=== PATIENT | male | born 1970 | race African-American/Black ===

== ENCOUNTER 2016-04-20 09:07 | Emergency (ER) | payer SELFPAY ==
[2016-04-20 10:28] LABS: BASOPHILS 0.5 % (0.0-2.0); EOSINOPHILS 1.2 % (0-7); HEMATOCRIT 36.1 % (42.0-54.0); HEMOGLOBIN 11.7 g/dL (13.5-17.5); IMMATURE GRANULOCYTES 0.6 % (0-5); LYMPHOCYTES 20.6 % (15-50); MCH 25.3 pg (26.0-34.0); MCHC 32.4 g/dL (31.0-37.0); MCV 78.1 fL (80.0-100.0); MEAN PLATELET VOLUME 10.9 fL (7.4-10.4); MONOCYTES 7.4 % (2-11); NEUTROPHILS 69.7 % (40-80); PLATELET COUNT 199 10x3/uL (130-400); RBC 4.62 10x6/uL (4.20-6.10); WBC 8.2 10x3/uL (4.8-10.8)
== END 2016-04-20 22:25 | disposition home or self-care (01) ==
LOC: D.ER 09:07
PROVIDERS: Emergency Medicine
DX: L03.313 Cellulitis of chest wall (principal); I50.9 Heart failure, unspecified; E11.9 Type 2 diabetes mellitus without complications; I10 Essential (primary) hypertension; Z95.1 Presence of aortocoronary bypass graft; F17.200 Nicotine dependence, unspecified, uncomplicated

== ENCOUNTER 2016-05-06 20:46 | Emergency (ER) | payer MEDICAID ==
[2016-05-06 23:03] LABS: BASOPHILS 0.4 % (0.0-2.0); EOSINOPHILS 0.4 % (0-7); HEMOGLOBIN 11.3 g/dL (13.5-17.5); IMMATURE GRANULOCYTES 1.7 % (0-5); LYMPHOCYTES 36.2 % (15-50); MCH 24.6 pg (26.0-34.0); MCHC 32.3 g/dL (31.0-37.0); MCV 76.1 fL (80.0-100.0); NEUTROPHILS 43.3 % (40-80); PLATELET COUNT 165 10x3/uL (130-400); RDW 16.5 % (11.5-14.5); WBC 4.7 10x3/uL (4.8-10.8)
[2016-05-06 23:15] LABS: APTT 34.7 SECONDS (22.8-39.4); INR 2.01 (0.85-1.17); PROTIME 22.8 SECONDS (11.6-15.0)
[2016-05-06 23:22] LABS: ALBUMIN 3.5 g/dL (3.4-5.0); ALKALINE PHOSPHATASE 104 U/L (46-116); ALT (SGPT) 31 U/L (10-68); BILIRUBIN - TOTAL 0.27 mg/dL (0.2-1.3); CALC OSMOLALITY 265 mosm/kg (275-300); CALCIUM 8.9 mg/dL (8.5-10.1); CARBON DIOXIDE 29.5 mmol/L (21.0-32.0); CHLORIDE - SERUM 94 mmol/L (98-107); CREATININE - SERUM 1.2 mg/dL (0.6-1.3); GLUCOSE 106 mg/dL (74-106); POTASSIUM - SERUM 3.5 mmol/L (3.5-5.1); PROTEIN - SERUM 8.5 g/dL (6.4-8.2); SODIUM 132 mmol/L (136-145); UREA NITROGEN 16 mg/dL (7-18); eGFR NON AFRICAN AMERICAN 69 mL/min (90-120)
[2016-05-06 23:34] LABS: CKMB 0.7 U/L (0.0-3.6); CREATINE KINASE 70 UL (21-232); PRO BNP 444 pg/mL (0-125); TROPONIN-I 0.052 ng/mL (0.000-0.060)
== END 2016-05-07 | disposition home or self-care (01) ==
LOC: D.ER 20:46
PROVIDERS: Emergency Medicine
DX: R07.89 Other chest pain (principal); J20.9 Acute bronchitis, unspecified; I50.9 Heart failure, unspecified; I10 Essential (primary) hypertension; E11.9 Type 2 diabetes mellitus without complications

== ENCOUNTER 2016-06-08 10:58 | Emergency (ER) | payer MEDICAID ==
[2016-06-08 12:02] LABS: BASOPHILS 0.3 % (0.0-2.0); EOSINOPHILS 0.6 % (0-7); HEMATOCRIT 40.2 % (42.0-54.0); HEMOGLOBIN 13.1 g/dL (13.5-17.5); IMMATURE GRANULOCYTES 0.7 % (0-5); LYMPHOCYTES 18.5 % (15-50); MCH 25.3 pg (26.0-34.0); MCHC 32.6 g/dL (31.0-37.0); MCV 77.6 fL (80.0-100.0); MONOCYTES 8.5 % (2-11); NEUTROPHILS 71.4 % (40-80); RBC 5.18 10x6/uL (4.20-6.10); WBC 10.8 10x3/uL (4.8-10.8)
[2016-06-08 12:15] LABS: PLATELET COUNT 216 10x3/uL (130-400)
[2016-06-08 12:19] LABS: ALBUMIN 3.8 g/dL (3.4-5.0); ANION GAP 13.2 mmol/L (8-16); BILIRUBIN - TOTAL 0.36 mg/dL (0.2-1.3); CALCIUM 9.1 mg/dL (8.5-10.1); CARBON DIOXIDE 28.2 mmol/L (21.0-32.0); CREATININE - SERUM 1.4 mg/dL (0.6-1.3); POTASSIUM - SERUM 3.4 mmol/L (3.5-5.1); PROTEIN - SERUM 8.9 g/dL (6.4-8.2)
[2016-06-08 12:55] LABS: APTT 32.9 SECONDS (22.8-39.4); INR 1.31 (0.85-1.17); PROTIME 16.2 SECONDS (11.6-15.0)
== END 2016-06-08 14:33 | disposition home or self-care (01) ==
LOC: D.ER 10:58
PROVIDERS: Emergency Medicine; Physician Assistant
DX: R42 Dizziness and giddiness (principal); R51 Headache; E11.9 Type 2 diabetes mellitus without complications; I10 Essential (primary) hypertension; Z79.01 Long term (current) use of anticoagulants; I50.9 Heart failure, unspecified; Z95.1 Presence of aortocoronary bypass graft

== ENCOUNTER 2016-07-19 09:32 | Emergency (ER) | payer MEDICAID ==
--- NOTE | ~2016-07-19 | EC ---
PATIENT:LAURA HARDIN DATE OF SERVICE: 07/19/16 SEX: M MEDICAL RECORD: [id number] DATE OF : [birth year] LOCATION:D.ER AGE OF PATIENT: 46 ADMISSION DATE: 07/19/16 REFERRING PHYSICIAN: INTERPRETING PHYSICIAN: STEPHAN GAN MD ECHOCARDIOGRAM REPORT ECHO CHARGES 4 ECHO COMPLETE CLINICAL DIAGNOSIS: CP ECHOCARDIOGRAPHIC MEASUREMENTS (adult normal given) AC root (d.<3.7cm) 3.6 LV Septum d (<1.2 cm> 1.2 Valve Excursion 2.0 LV Septum (systole) 1.8 Left Atria (s.<4.0cm> 5.5 LVPW d(<1.2cm) 1.2 RV (d.<2.3cm) 3.0 LVPW (sytole) 1.6 LV diastole(<5.6CM) 6.1 MV E-F(>70mm/sec) LV systole 4.6 LVOT Diameter 1.9 MV exc.(>10mm) Est.ejection fraction (50-75%) Pericardial Effusion N DOPPLER: LVIT A 51.0 E 200 LA RVSP 30.2 LVOT 80.0 AOP1/2T Asc. Ao 133 RVOT 73.0 RA PA 75.0 AV Gradient Peak 7.1 AV Mean 2.9 AV Area 1.7 MV Gradient Peak 14.2 MV Mean 4.0 MV Area COMMENTS: Paper Bag Making Machinist: Fab REESEOE Putty And Patch Worker:1 Dr. Gan TAPE# PACS DATE OF SERVICE: 07/19/2016 Echocardiogram FINDINGS: 1. Left ventricular chamber size is dilated. Left ventricular systolic function is ktpaoyug-ni-iuretslt reduced. Overall ejection fraction in the 30% range. 2. Left atrium is enlarged at 5.5 cm. Right atrium and right ventricle chamber sizes are as well mildly dilated. ECHOCARDIOGRAM REPORT [id number] LAURA HARDIN 3. Valvular structures: The patient underwent repair of the mitral and tricuspid valves. The valvular structures have normal structure and motion. 4. Doppler interrogation reveals mild mitral regurgitation and mild tricuspid regurgitation. No other valvular insufficiency or stenosis and pulmonary systolic pressure is normal at 30 mmHg. 5. No evidence of pericardial effusion or left ventricular thrombus. TRANSINT:[id number] Voice Confirmation ID: [id number] DOCUMENT ID: [id number] STEPHAN GAN MD CC: [id number] DICTATION DATE: 07/19/16 1254 PUMP INSTALLATION AND SERVICER: 07/19/16 1549 [facility] [address] [id number]
--- NOTE | ~2016-07-19 | CN ---
PATIENT NAME:LAURA SIMPSON MEDICAL RECORD: [id number] : 70 LOCATION:.ER ADMIT DATE: ACCOUNT: [id number] CONSULTING PHYSICIAN: STEPHAN ROSARIO MD REFERRING PHYSICIAN: YUNIEL GUY DATE OF CONSULTATION: 07/19/2016 ADMITTING DIAGNOSES: 1. Chest pain. 2. Recent cardiac surgery, valve repair, mitral. HISTORY OF PRESENT ILLNESS: Mr. Simpson had 2 episodes of sharp chest pain this morning. He does not have a history of ischemic heart disease or coronary artery disease. He is status post recent open valve repair surgery in [place]. He had a cardiac catheterization prior to that. There were no significant blockages, no bypasses were done. This pain that he experienced today was more like a musculoskeletal postoperative pain centered around the scar area. PHYSICAL EXAMINATION: GENERAL APPEARANCE: Well-nourished, well-developed, appears stated age. Level of distress, comfortable. PSYCHIATRIC: Mental status, alert, normal affect. Orientation, oriented to time, place and person. EYES: Lids and conjunctiva, noninjected. No discharge, no pallor. ENT: Lips, teeth, gums, normal dentition. Oropharynx, no cyanosis, no pallor. NECK: Carotid arteries, bilateral normal upstroke, no bruits, no thrills. JUGULAR VEINS: No jugular venous pressure or distention. CERVICAL LYMPH NODES: Nontender, nonenlarged. THYROID: Not enlarged. Nontender. No nodules. LUNGS: Respiratory effort, unlabored. CHEST: Normal curvature. No thoracic deformity. No chest wall tenderness. Percussion, resonant. Auscultation, clear. No wheezes, no rales, no rhonchi. CARDIOVASCULAR: Precordial exam, nondisplaced. No heaves or pericardial thrills. Rate and rhythm, regular. Heart sounds, normal S1, normal S2. No S3, no gallop, no rub. Systolic murmur, not heard. Diastolic murmur, not heard. EXTREMITIES: No cyanosis, no edema. Peripheral pulses, full and equal in all extremities, except as noted. No bruits appreciated. ABDOMEN: Soft, nondistended. Normal aorta. No bruit. Nontender. No masses. Liver, nontender, no hepatomegaly. Spleen, nontender, no splenomegaly. MUSCULOSKELETAL: No joint tenderness. No joint swelling. No erythema. NEUROLOGICAL: Normal gait, normal strength, normal tone. SKIN: Warm and dry. REVIEW OF SYSTEMS: The patient reports easy bruising but reports no swollen glands. The patient reports no fever, no night sweats, no significant weight gain, no significant weight loss. No significant exercise tolerance. The patient reports no dry eyes, no irritation, no vision change. Patient reports no difficulty hearing and no ear pain. Patient reports no frequent nose bleeds or nose and sinus problems. Patient reports on arm pain on exertion. No shortness of breath while lying down. No history of heart murmur. Patient reports no cough, no wheezing or coughing up blood. Patient reports no abdominal pain, no vomiting. Normal appetite. No diarrhea and not vomiting blood. No nausea and no constipation. Patient reports no incontinence. No difficulty urinating. No hematuria. No increased frequency. Patient reports no muscle aches. No weakness, no arthralgias, no back pain. No swelling of the CONSULT REPORT [id number] LASHAWNLAURA L extremities. Patient reports no abnormal mole, no jaundice, no rashes. Reports no loss of consciousness. No weakness and no numbness. No seizures, dizziness, or headaches. The patient reports no depression, no sleep disturbance, feeling safe in a relationship and no alcohol abuse. Patient reports on fatigue. Reports no runny nose or sinus pressure. No itching, no hives, and no frequent sneezing. PLAN: At this time, we will get an echocardiogram to make sure that the integrity of the valve repair is still valid. Most likely, this is postop musculoskeletal changes and no other cardiac workup or treatment would be necessary. TRANSINT:[id number] Voice Confirmation ID: [id number] DOCUMENT ID: [id number] STEPHAN ROSARIO MD CC: [id number] DICTATION DATE: 07/19/16 1147 POST PARTUM NURSE: 07/19/[address] [facility] [address] [place] [address]
[2016-07-19 10:13] LABS: BASOPHILS 0.3 % (0-2); EOSINOPHILS 1.4 % (0-7); HEMATOCRIT 40.3 % (42.0-54.0); HEMOGLOBIN 13.2 g/dL (13.5-17.5); IMMATURE GRANULOCYTES 0.3 % (0-5); LYMPHOCYTES 33.2 % (15-50); MCH 25.8 pg (26.0-34.0); MCHC 32.8 g/dL (31.0-37.0); MCV 78.9 fL (80.0-100.0); MEAN PLATELET VOLUME 10.9 fL (7.4-10.4); MONOCYTES 6.6 % (2-11); NEUTROPHILS 58.2 % (40-80); PLATELET COUNT 203 10x3/uL (130-400); RBC 5.11 10x6/uL (4.20-6.10); RDW 17.9 % (11.5-14.5); WBC 5.9 10x3/uL (4.8-10.8)
[2016-07-19 10:32] LABS: ALBUMIN 3.6 g/dL (3.4-5.0); ALKALINE PHOSPHATASE 90 U/L (46-116); ALT (SGPT) 29 U/L (10-68); CALC OSMOLALITY 274 mosm/kg (275-300); CALCIUM 8.8 mg/dL (8.5-10.1); CARBON DIOXIDE 27.2 mmol/L (21.0-32.0); CHLORIDE - SERUM 102 mmol/L (98-107); POTASSIUM - SERUM 3.7 mmol/L (3.5-5.1); PROTEIN - SERUM 8.5 g/dL (6.4-8.2); SODIUM 138 mmol/L (136-145); UREA NITROGEN 8 mg/dL (7-18); eGFR NON AFRICAN AMERICAN 85 mL/min (90-120)
[2016-07-19 10:48] LABS: GLUCOSE 111 mg/dL (74-106)
[2016-07-19 10:54] LABS: CHOL - HDL RATIO 3.8 ratio (2.3-4.9); CHOLESTEROL, TOTAL 193 mg/dL (0-200); CKMB 1.7 U/L (0.0-3.6); CREATINE KINASE 81 UL (21-232); HDL CHOLESTEROL 51 mg/dL (32-96); LDL CHOLESTEROL 129 mg/dL (0-100); LDL-HDL RATIO 2.5 ratio (1.5-3.5); TRIGLYCERIDE 66 mg/dL (30-200); TROPONIN-I 0.033 ng/mL (0.000-0.060)
== END 2016-07-19 12:55 | disposition home or self-care (01) ==
LOC: D.ER 09:32
PROVIDERS: Family Medicine
DX: R07.89 Other chest pain (principal); I50.9 Heart failure, unspecified; Z79.01 Long term (current) use of anticoagulants; E11.9 Type 2 diabetes mellitus without complications; I10 Essential (primary) hypertension; I25.810 Atherosclerosis of coronary artery bypass graft(s) without angina pectoris

== ENCOUNTER 2016-07-21 12:17 | Emergency (ER) | payer MEDICAID ==
[2016-07-21 12:57] LABS: BASOPHILS 0.6 % (0-2); EOSINOPHILS 0.7 % (0-7); HEMATOCRIT 46.4 % (42.0-54.0); HEMOGLOBIN 15.6 g/dL (13.5-17.5); IMMATURE GRANULOCYTES 0.6 % (0-5); LYMPHOCYTES 26.3 % (15-50); MCH 25.8 pg (26.0-34.0); MCHC 33.6 g/dL (31.0-37.0); MCV 76.8 fL (80.0-100.0); MONOCYTES 7.7 % (2-11); NEUTROPHILS 64.1 % (40-80); PLATELET COUNT 238 10x3/uL (130-400); RBC 6.04 10x6/uL (4.20-6.10); RDW 17.1 % (11.5-14.5); WBC 10.8 10x3/uL (4.8-10.8)
[2016-07-21 13:18] LABS: ALBUMIN 4.1 g/dL (3.4-5.0); ANION GAP 20.5 mmol/L (8-16); BILIRUBIN - TOTAL 0.43 mg/dL (0.2-1.3); CALCIUM 9.7 mg/dL (8.5-10.1); CREATININE - SERUM 2.3 mg/dL (0.6-1.3); PROTEIN - SERUM 9.9 g/dL (6.4-8.2)
[2016-07-21 13:25] LABS: POTASSIUM - SERUM 2.5 mmol/L (3.5-5.1)
[2016-07-21 13:57] LABS: DIGOXIN 0.42 ng/mL (0.90-2.00); MAGNESIUM - SERUM 1.8 mg/dL (1.8-2.4)
== END 2016-07-21 18:47 | disposition home or self-care (01) ==
LOC: D.ER 12:17
PROVIDERS: Emergency Medicine
DX: R06.00 Dyspnea, unspecified (principal); E87.6 Hypokalemia; I25.810 Atherosclerosis of coronary artery bypass graft(s) without angina pectoris; I50.9 Heart failure, unspecified; I10 Essential (primary) hypertension; E11.9 Type 2 diabetes mellitus without complications

== ENCOUNTER 2016-10-02 10:48 | Observation (INO) | payer MEDICAID ==
[~2016-10-02] VITALS: Ht 175.3 cm; Wt 111.2 kg
[2016-10-02 11:22] LABS: BASOPHILS 0.5 % (0-2); HEMATOCRIT 37.8 % (42.0-54.0); HEMOGLOBIN 12.5 g/dL (13.5-17.5); IMMATURE GRANULOCYTES 0.2 % (0-5); LYMPHOCYTES 20.9 % (15-50); MCH 25.8 pg (26.0-34.0); MCHC 33.1 g/dL (31.0-37.0); MCV 77.9 fL (80.0-100.0); MEAN PLATELET VOLUME 11.3 fL (7.4-10.4); MONOCYTES 7.4 % (2-11); RBC 4.85 10x6/uL (4.20-6.10); RDW 17.8 % (11.5-14.5); WBC 8.4 10x3/uL (4.8-10.8)
[2016-10-02 11:25] LABS: PLATELET COUNT 160 10x3/uL (130-400)
[2016-10-02 11:31] LABS: APTT 34.8 SECONDS (22.8-39.4); INR 1.31 (0.85-1.17); PROTIME 16.2 SECONDS (11.6-15.0)
[2016-10-02 11:36] LABS: ALBUMIN 3.3 g/dL (3.4-5.0); ALKALINE PHOSPHATASE 77 U/L (46-116); ALT (SGPT) 72 U/L (10-68); BILIRUBIN - TOTAL 0.78 mg/dL (0.2-1.3); CALC OSMOLALITY 279 mosm/kg (275-300); CALCIUM 8.4 mg/dL (8.5-10.1); CARBON DIOXIDE 26.1 mmol/L (21.0-32.0); CHLORIDE - SERUM 105 mmol/L (98-107); CREATININE - SERUM 0.9 mg/dL (0.6-1.3); POTASSIUM - SERUM 3.4 mmol/L (3.5-5.1); PROTEIN - SERUM 7.8 g/dL (6.4-8.2); SODIUM 141 mmol/L (136-145); UREA NITROGEN 10 mg/dL (7-18); eGFR NON AFRICAN AMERICAN > 90 mL/min (90-120)
[2016-10-02 11:37] LABS: GLUCOSE 106 mg/dL (74-106)
[2016-10-02 11:42] LABS: CREATINE KINASE 101 UL (21-232); PRO BNP 973 pg/mL (0-125)
[2016-10-02 13:22] LABS: APPEARANCE CLEAR (CLEAR); BILIRUBIN NEGATIVE (NEGATIVE); COLOR YELLOW (YELLOW); GLUCOSE NEGATIVE (NEGATIVE); KETONE NEGATIVE (NEGATIVE); LEUKOCYTE ESTERASE NEGATIVE (NEGATIVE); NITRITE NEGATIVE (NEGATIVE); PROTEIN NEGATIVE (NEGATIVE); SPECIFIC GRAVITY 1.005 (1.005-1.020); UROBILINOGEN NORMAL (NORMAL)
--- NOTE | 2016-10-02 14:19 | NUR ---
TRANSFER FROM ER BY W/C. STEVEINTED TO ROOM. CALL LIGHT IN REACH. WILL CONT. PLAN OF CARE.
[2016-10-02] MEDS ORDERED: LANOXIN125 MCG PO (15:12)
[2016-10-02] MEDS ORDERED: BUMEX2 MG PO (15:12)
[2016-10-02] MEDS ORDERED: COUMADIN5 MG PO (15:12)
[2016-10-02] MEDS ORDERED: COREG12.5 MG PO (15:13)
[2016-10-02] MEDS ORDERED: ALDACTONE25 MG PO (15:13)
[2016-10-02] MEDS ORDERED: TORSEMIDE20 MG PO (15:13)
--- NOTE | 2016-10-02 17:57 | NUR ---
WITHOUT CHANGES OR DISTRESS NNOTED AT THIS TIME. DENIES NEEDS,
--- NOTE | 2016-10-02 19:43 | NUR ---
RECEIVED REPORT, WILL ASSUME CARE OF PT, TALKING ON CELL PHONE, DENIES ANY NEEDS, BED IS LOW, SRX2, CALL LIGHT IN REACH, WILL CONTINUE PLAN OF CARE
[2016-10-02 20:59] VITALS: BP 120/78
--- NOTE | 2016-10-03 00:12 | NUR ---
ASSESSMENT COMPLETE, SEE FLOWSHEET, PT SLEEPING, BED IS LOW, SRX2, CALL LIGHT IN REACH, WILL CONTINUE PLAN OF CARE
[2016-10-03 01:20] VITALS: BP 109/71
--- NOTE | 2016-10-03 03:44 | NUR ---
RECIEVED REPORT FROM CEDRICK ARITA @ 4859, CHECKED IN ON PATIENT. SLEEPING, RR EVEN AND UNLABORED. NO S&S OF ACUTE DISTRESS NOTED. ON TELELMETRY, SHOWING SR @ 79. BED LOW AND LOCKED, CALL LIGHT IN REACH. WILL CPOC.
[2016-10-03 04:38] LABS: BASOPHILS 0.2 % (0-2); HEMATOCRIT 37.3 % (42.0-54.0); HEMOGLOBIN 12.1 g/dL (13.5-17.5); IMMATURE GRANULOCYTES 0.4 % (0-5); LYMPHOCYTES 18.5 % (15-50); MCH 25.4 pg (26.0-34.0); MCHC 32.4 g/dL (31.0-37.0); MCV 78.2 fL (80.0-100.0); MEAN PLATELET VOLUME 11.7 fL (7.4-10.4); MONOCYTES 8.1 % (2-11); NEUTROPHILS 69.8 % (40-80); PLATELET COUNT 167 10x3/uL (130-400); RBC 4.77 10x6/uL (4.20-6.10); RDW 17.9 % (11.5-14.5); WBC 9.4 10x3/uL (4.8-10.8)
[2016-10-03 04:57] LABS: INR 1.24 (0.85-1.17); PROTIME 15.5 SECONDS (11.6-15.0)
[2016-10-03 05:04] VITALS: BP 111/72
[2016-10-03 05:07] LABS: CALC OSMOLALITY 275 mosm/kg (275-300); CALCIUM 8.1 mg/dL (8.5-10.1); CARBON DIOXIDE 28.5 mmol/L (21.0-32.0); CHLORIDE - SERUM 102 mmol/L (98-107); GLUCOSE 117 mg/dL (74-106); POTASSIUM - SERUM 3.5 mmol/L (3.5-5.1); PRO BNP 861 pg/mL (0-125); SODIUM 138 mmol/L (136-145); UREA NITROGEN 10 mg/dL (7-18); eGFR NON AFRICAN AMERICAN 85 mL/min (90-120)
[2016-10-03] MEDS ORDERED: COREG12.5 MG PO (08:02)
[2016-10-03] MEDS ORDERED: K-DUR20 MEQ PO (08:02)
[2016-10-03] MEDS ORDERED: ALDACTONE25 MG PO (08:02)
[2016-10-03] MEDS ORDERED: COUMADIN5 MG PO (08:02)
[2016-10-03] MEDS ORDERED: LANOXIN125 MCG PO (08:02)
--- NOTE | 2016-10-03 08:02 | NUR ---
ASSESSMENT DONE. DENIES NEEDS.
[2016-10-03] MEDS ORDERED: TORSEMIDE20 MG PO (08:04)
[2016-10-03 08:12] VITALS: BP 110/60
--- NOTE | 2016-10-03 09:17 | NUR ---
RESTS IN BED. ROBYN NEEDS AT THIS TIME. CALL LIGHT IN REACH. WILL CONT. PLAN OF CARE.
[2016-10-03 10:48] VITALS: BP 120/82; Ht 175.3 cm; Wt 111.2 kg
--- NOTE | 2016-10-03 11:29 | NUR ---
DC GIVEN TO PT
[2016-10-03 11:47] VITALS: BP 117/76
--- NOTE | 2016-10-03 11:57 | NUR ---
DC HOME PER PERSONAL CAR
== END 2016-10-03 11:57 | disposition home or self-care (01) ==
LOC: D.ER 10:48 → OBSVTIME 13:15 → D.M2 13:15
PROVIDERS: Emergency Medicine; Nurse Practitioner Acute Care; ADMIT Family Medicine
DX: I11.0 Hypertensive heart disease with heart failure (principal); I50.23 Acute on chronic systolic (congestive) heart failure; E87.6 Hypokalemia; E11.9 Type 2 diabetes mellitus without complications

== ENCOUNTER 2016-11-13 19:23 | Emergency (ER) | payer MEDICAID ==
[2016-10-03 10:48] VITALS: BMI 36.2
[~2016-11-13 19:23] MED LIST: ALDACTONE25 MG PO; BUMEX2 MG PO; COREG12.5 MG PO; COUMADIN5 MG PO; K-DUR20 MEQ PO; LANOXIN125 MCG PO; TORSEMIDE20 MG PO
[2016-11-13 19:58] LABS: BASOPHILS 0.5 % (0-2); EOSINOPHILS 2.2 % (0-7); HEMATOCRIT 42.5 % (42.0-54.0); HEMOGLOBIN 14.3 g/dL (13.5-17.5); IMMATURE GRANULOCYTES 0.5 % (0-5); MCH 26.4 pg (26.0-34.0); MCHC 33.6 g/dL (31.0-37.0); MCV 78.6 fL (80.0-100.0); MEAN PLATELET VOLUME 11.2 fL (7.4-10.4); MONOCYTES 8.6 % (2-11); NEUTROPHILS 64.2 % (40-80); PLATELET COUNT 190 10x3/uL (130-400); RBC 5.41 10x6/uL (4.20-6.10); RDW 17.3 % (11.5-14.5); WBC 10.4 10x3/uL (4.8-10.8)
[2016-11-13 20:17] LABS: ALKALINE PHOSPHATASE 90 U/L (46-116); ALT (SGPT) 36 U/L (10-68); CALC OSMOLALITY 274 mosm/kg (275-300); CALCIUM 9.4 mg/dL (8.5-10.1); CHLORIDE - SERUM 99 mmol/L (98-107); CREATININE - SERUM 1.1 mg/dL (0.6-1.3); GLUCOSE 106 mg/dL (74-106); POTASSIUM - SERUM 3.2 mmol/L (3.5-5.1); PROTEIN - SERUM 8.9 g/dL (6.4-8.2); SODIUM 138 mmol/L (136-145); UREA NITROGEN 10 mg/dL (7-18); eGFR NON AFRICAN AMERICAN 76 mL/min (90-120)
[2016-11-13 20:24] LABS: CREATINE KINASE 104 UL (21-232); PRO BNP 872 pg/mL (0-125); TROPONIN-I 0.048 ng/mL (0.000-0.060)
== END 2016-11-13 21:39 | disposition home or self-care (01) ==
LOC: D.ER 19:23
PROVIDERS: Emergency Medicine
DX: J06.9 Acute upper respiratory infection, unspecified (principal); R05 Cough; I50.9 Heart failure, unspecified; I10 Essential (primary) hypertension; Z86.79 Personal history of other diseases of the circulatory system; E11.9 Type 2 diabetes mellitus without complications

== ENCOUNTER 2016-11-30 19:32 | Emergency (ER) | payer MEDICAID ==
[2016-10-03 10:48] VITALS: BMI 36.2
== END 2016-11-30 21:15 | disposition home or self-care (01) ==
LOC: D.ER 19:32
DX: M25.561 Pain in right knee (principal); M76.9 Unspecified enthesopathy, lower limb, excluding foot; I50.9 Heart failure, unspecified; I10 Essential (primary) hypertension; E11.9 Type 2 diabetes mellitus without complications

== ENCOUNTER 2016-12-02 19:20 | Inpatient (IN) | payer MEDICAID ==
[2016-12-02 19:53] LABS: BASOPHILS 0.3 % (0-2); EOSINOPHILS 2.1 % (0-7); HEMATOCRIT 40.4 % (42.0-54.0); HEMOGLOBIN 13.7 g/dL (13.5-17.5); IMMATURE GRANULOCYTES 0.5 % (0-5); LYMPHOCYTES 30.8 % (15-50); MCH 26.8 pg (26.0-34.0); MCHC 33.9 g/dL (31.0-37.0); MCV 78.9 fL (80.0-100.0); MEAN PLATELET VOLUME 11.7 fL (7.4-10.4); MONOCYTES 7.2 % (2-11); NEUTROPHILS 59.1 % (40-80); PLATELET COUNT 191 10x3/uL (130-400); RBC 5.12 10x6/uL (4.20-6.10); RDW 16.1 % (11.5-14.5); WBC 10.2 10x3/uL (4.8-10.8)
[2016-12-02 20:05] LABS: APTT 44.9 SECONDS (22.8-39.4); INR 1.73 (0.85-1.17); PROTIME 20.2 SECONDS (11.6-15.0)
[2016-12-02 20:06] LABS: D-DIMER-QUANTITATIVE < 0.27 ug/mLFEU (0.20-0.54)
[2016-12-02 20:23] LABS: ALBUMIN 3.3 g/dL (3.4-5.0); ALKALINE PHOSPHATASE 120 U/L (46-116); ALT (SGPT) 23 U/L (10-68); BILIRUBIN - TOTAL 0.31 mg/dL (0.2-1.3); CALCIUM 8.7 mg/dL (8.5-10.1); CARBON DIOXIDE 27.4 mmol/L (21.0-32.0); CHLORIDE - SERUM 90 mmol/L (98-107); CHOLESTEROL, TOTAL 204 mg/dL (0-200); CKMB 0.5 U/L (0.0-3.6); CREATINE KINASE 94 UL (21-232); CREATININE - SERUM 1.5 mg/dL (0.6-1.3); DIGOXIN 0.32 ng/mL (0.90-2.00); HDL CHOLESTEROL 34 mg/dL (32-96); LDL CHOLESTEROL 105 mg/dL (0-100); LDL-HDL RATIO 3.1 ratio (1.5-3.5); PROTEIN - SERUM 8.6 g/dL (6.4-8.2); SODIUM 129 mmol/L (136-145); TRIGLYCERIDE 328 mg/dL (30-200); UREA NITROGEN 14 mg/dL (7-18); eGFR NON AFRICAN AMERICAN 53 mL/min (90-120)
[2016-12-02 20:26] LABS: CALC OSMOLALITY 278 mosm/kg (275-300)
[2016-12-02 20:29] LABS: GLUCOSE 447 mg/dL (74-106)
[2016-12-02 20:30] LABS: TROPONIN-I 0.067 ng/mL (0.000-0.060)
[2016-12-03] VITALS: BP 105/86
--- NOTE | 2016-12-03 00:15 | NUR ---
ADMIT TO ROOM 2124 @ 2350 FROM ER VIA WHEELCHAIR. ALERT/ORIENTED AND CONVERSES APPROPRIATELY. TELEMETRY INITIATED, PT IS SR 77. PIV SALINE LOCKED TO LEFT WRIST. ADMISSION HISTORY AND ASSESSMENT COMPLETED. ORIENTATION TO ROOM, CALL LIGHT AND SAFETY. PLAN OF CARE REVIEWED. PT HAS NOT EATEN, PROVIDED WITH SANDWHICH TRAY AND DRINK AND THEN PATIENT WILL BE NPO UNTIL SEEN BY ENGINEERING MGR.
[2016-12-03 02:08] VITALS: BP 121/78
[2016-12-03 02:33] LABS: BASOPHILS 0.3 % (0-2); EOSINOPHILS 2.9 % (0-7); HEMATOCRIT 37.5 % (42.0-54.0); HEMOGLOBIN 12.6 g/dL (13.5-17.5); IMMATURE GRANULOCYTES 0.5 % (0-5); LYMPHOCYTES 31.5 % (15-50); MCH 26.6 pg (26.0-34.0); MCHC 33.6 g/dL (31.0-37.0); MCV 79.1 fL (80.0-100.0); MONOCYTES 7.5 % (2-11); NEUTROPHILS 57.3 % (40-80); PLATELET COUNT 169 10x3/uL (130-400); RBC 4.74 10x6/uL (4.20-6.10); RDW 16.2 % (11.5-14.5); WBC 9.8 10x3/uL (4.8-10.8)
[2016-12-03 02:39] LABS: INR 1.86 (0.85-1.17); PROTIME 21.4 SECONDS (11.6-15.0)
[2016-12-03 02:59] LABS: ALBUMIN 2.9 g/dL (3.4-5.0); ALKALINE PHOSPHATASE 100 U/L (46-116); ALT (SGPT) 19 U/L (10-68); BILIRUBIN - TOTAL 0.29 mg/dL (0.2-1.3); CALCIUM 8.4 mg/dL (8.5-10.1); CARBON DIOXIDE 31.2 mmol/L (21.0-32.0); CHLORIDE - SERUM 95 mmol/L (98-107); CKMB 0.6 U/L (0.0-3.6); CREATINE KINASE 86 UL (21-232); CREATININE - SERUM 1.4 mg/dL (0.6-1.3); POTASSIUM - SERUM 3.3 mmol/L (3.5-5.1); PROTEIN - SERUM 7.6 g/dL (6.4-8.2); SODIUM 136 mmol/L (136-145); UREA NITROGEN 17 mg/dL (7-18); eGFR NON AFRICAN AMERICAN 58 mL/min (90-120)
[2016-12-03 03:00] LABS: CALC OSMOLALITY 283 mosm/kg (275-300); GLUCOSE 285 mg/dL (74-106); TROPONIN-I 0.084 ng/mL (0.000-0.060)
[2016-12-03 03:37] VITALS: BP 105/86; BMI 36.8
[2016-12-03 04:00] VITALS: BP 104/75
--- NOTE | 2016-12-03 07:10 | NUR ---
RECEIVED REPORT. ASSUMED CARE OF PATIENT. CALL LIGHT WITHIN REACH. RESTING IN BED WITH EYES OPEN. DENIES PAIN AT THIS TIME. PATIENT IS SR ON TELEMETRY WITH OCCASIONAL PVC. NO DISTRESS.
[2016-12-03 08:00] VITALS: BP 144/86
[2016-12-03 09:17] LABS: CREATINE KINASE 95 UL (21-232); TROPONIN-I 0.056 ng/mL (0.000-0.060)
[2016-12-03 11:00] VITALS: BP 148/77
--- NOTE | 2016-12-03 11:45 | NUR ---
EKG COMPLETED AT THIS TIME. RESTING IN BED WITH EYES OPEN. CALL LIGHT WITHIN REACH. ZOSYN INFUSING ORDERED. DIET LEMON KONGIGANAK PROVIDED UPON REQUEST. NO DISTRESS.
--- NOTE | 2016-12-03 14:34 | NUR ---
FSBS 354. HIGH RESISTANCE SCALE CALLS FOR 24 UNITS TO BE ADMINISTERED. PATIENT STATES HE DOES NOT TAKE ANY INSULIN AT HOME NOR DOES HE TAKE ANY HYPERGLYCEMIC MEDICATION. 24 UNITS MAY BOTTOM PATIENT OUT. WAITING TO SPEAK WITH . HAVE VOICED CONCERNS TO ADWOA CARNES.
--- NOTE | 2016-12-03 14:40 | NUR ---
NEW ORDERS TO CHANGE SLIDING SCALE TO INTERMEDIATE.
[2016-12-03 14:51] LABS: CKMB 0.9 U/L (0.0-3.6); CREATINE KINASE 86 UL (21-232); TROPONIN-I 0.041 ng/mL (0.000-0.060)
--- NOTE | 2016-12-03 16:18 | NUR ---
KNEE ASPIRATION COMPLETED AT BEDSIDE AT THIS TIME WITH .PATIENT TOLERATED PROCEDURE WELL. DRESSING TO RIGHT LATERL KNEE CLEAN DRY AND INTACT.
--- NOTE | 2016-12-03 16:36 | NUR ---
FSBS 298. 10 UNITS HUMUIN ADMINISTERED PER SLIDING SCALE.
[2016-12-03 17:04] LABS: ERYTHROCYTE SEDIMENTATION RATE 20 mm/hr (0-15)
--- NOTE | 2016-12-03 17:52 | NUR ---
RESTING IN BED WITH EYES OPEN, CONVERSING ON CELL PHONE. NO DISTRESS. DRESSING TO RIGHT LATERAL KNEE CLEAN, DRY AND INTACT. DENIES NEEDS.
[2016-12-03 17:53] LABS: PROTEIN - BODY FLUID 3.9 G/DL
[2016-12-03 18:00] LABS: MACROPHAGES BF 3 %; MESOTHELIALS BF 39 %; NEUT - BF 56 %
--- NOTE | 2016-12-03 21:05 | NUR ---
PT RESTING IN BED. ALERT/ORIENTED. NONLABORED RESPIRATIONS ON ROOM AIR. RIGHT KNEE WITH DRESSING C/D/I. DENIES PAIN OR DISCOMFORT. SEE SHIFT ASSESSMENT. CPOC. BEDTIME MED GIVEN.
[2016-12-04] VITALS: BP 119/77
[2016-12-04 04:00] VITALS: BP 125/89
--- NOTE | 2016-12-04 04:11 | NUR ---
PT HAS RESTED WELL. NO DISTRESS. IVF/ABT INFUSING ORDERED. CPOC.
[2016-12-04 05:35] LABS: BASOPHILS 0.3 % (0-2); EOSINOPHILS 3.2 % (0-7); HEMATOCRIT 37.3 % (42.0-54.0); HEMOGLOBIN 12.7 g/dL (13.5-17.5); IMMATURE GRANULOCYTES 0.3 % (0-5); LYMPHOCYTES 25.2 % (15-50); MCH 26.7 pg (26.0-34.0); MCV 78.5 fL (80.0-100.0); MONOCYTES 7.2 % (2-11); NEUTROPHILS 63.8 % (40-80); PLATELET COUNT 159 10x3/uL (130-400); RBC 4.75 10x6/uL (4.20-6.10); RDW 16.1 % (11.5-14.5); WBC 9.1 10x3/uL (4.8-10.8)
[2016-12-04 05:47] LABS: PROTIME 17.9 SECONDS (11.6-15.0)
[2016-12-04 05:51] LABS: ERYTHROCYTE SEDIMENTATION RATE 22 mm/hr (0-15)
[2016-12-04 05:54] LABS: ALBUMIN 2.9 g/dL (3.4-5.0); ALKALINE PHOSPHATASE 84 U/L (46-116); ALT (SGPT) 21 U/L (10-68); BILIRUBIN - TOTAL 0.46 mg/dL (0.2-1.3); C-REACTIVE PROTEIN 3.7 mg/dL (0.0-0.9); CALCIUM 8.3 mg/dL (8.5-10.1); CARBON DIOXIDE 32.1 mmol/L (21.0-32.0); CHLORIDE - SERUM 96 mmol/L (98-107); CREATININE - SERUM 1.1 mg/dL (0.6-1.3); INR 1.48 (0.85-1.17); POTASSIUM - SERUM 3.4 mmol/L (3.5-5.1); PROTEIN - SERUM 7.5 g/dL (6.4-8.2); SODIUM 135 mmol/L (136-145); eGFR NON AFRICAN AMERICAN 76 mL/min (90-120)
[2016-12-04 06:18] LABS: CALC OSMOLALITY 273 mosm/kg (275-300); GLUCOSE 190 mg/dL (74-106); UREA NITROGEN 11 mg/dL (7-18)
--- NOTE | 2016-12-04 07:30 | NUR ---
RECEIVED PT IN BED AAOX4 DENIES ANY NEEDS OR DISCOMFORT AT THIS TIME
[2016-12-04 08:00] VITALS: BP 122/73
--- NOTE | 2016-12-04 11:06 | NUR ---
FSBS 230 REGULAR INSULIN 8 UNITS GIVEN SQ LT ARM
[2016-12-04 11:43] VITALS: BP 106/85
[2016-12-04] MEDS ORDERED: BACTRIM DS TABL1 TAB PO (13:11)
[2016-12-04] MEDS ORDERED: FLORAJEN3 CAPS460 MG PO (13:11)
[2016-12-04 13:55] VITALS: BMI 36.7
--- NOTE | 2016-12-04 14:12 | NUR ---
Patient Name: LAURA HARDIN Admission Status: ER Accout number: [id number] Admission Date: 12-02-2016 : 1970 Admission Diagnosis:EFFUSION, RIGHT KNEE Attending: NILA, Current LOS: 2 Anticipated DC Date: 12-04-2016 Planned Disposition: Home Primary Insurance: MEDICAID [place] Discharge Planning Comments: * Is the patient Alert and Oriented? Yes 0 * How many steps to enter\exit or inside your home? 9 0 * PCP INTERNET MARKETING STRATEGIST [facility] 0 * Pharmacy [facility] 0 * Preadmission Environment Home Alone 0 * ADLs Independent 0 * Equipment None 0 * Other Equipment NO MEDICAL EQUIPMENT PROVIDER PREFERENCE 0 * List name and contact numbers for known caregivers / representatives who currently or will assist patient after discharge: SUZANNE HARDIN, SISTER, 0 * Community resources currently utilized None 0 * Please name any agencies selected above. NONE 0 * Additional services required to return to the preadmission environment? No 0 * Can the patient safely return to the preadmission environment? Yes 0 * Has this patient been hospitalized within the prior 30 days at any hospital? No 0 CM MET WITH PT IN ROOM TO DISCUSS DISCHARGE PLANNING AND NEEDS. PT REPORTS LIVING AT HOME INDEPENDENTLY AND ALONE. PT HAS NO MEDICAL EQUIPMENT AND NO OUTSIDE SERVICES ASSISTING IN THE HOME. CM DISCUSSED AVAILABILITY OF HOME HEALTH, REHAB SERVICES AND MEDICAL EQUIPMENT. PT DENIES DISCHARGE NEEDS, REPORTS HIS SISTER WILL PICK HER UP FOR DISCHARGE HOME TODAY. PT ASKED HOW TO ACCESS MEDICAID TRANSPORTATION SERVICES, CM PROVIDED THE PHONE NUMBER, , ADVISED PT THAT HE WOULD NEED TO CALL WITH HIS MEDICAID NUMBER FOR PHONE ASSESSMENT AND CERTIFICATION FOR TRANSPORTATION SERVICES. IF ELIGIBLE, PT WILL NEED TO CALL 48 HOURS IN ADVANCE FOR MEDICAL APPOINTMENT TRANSPORTATION. PT DENIES FURTHER DISCHARGE NEEDS. Lease Purchase Truck Driver: Saul Aguilar
--- NOTE | 2016-12-04 17:00 | NUR ---
REVIEWED DISCHARGE INSTRUCTIONS WITH PT STATES UNDERSTANDING COPY GIVEN DCD SALINE LOCK TO LFA WITH IV CATHETER INTACT SITE FREE OF REDNESS OR EDEMA PT DISCHARGED HOME LEFT UNIT VIA W/C IN STABLE CONDITION WITH ALL PERSONAL BELONGINGS
--- NOTE | 2016-12-05 07:04 | OP ---
PATIENT NAME: LAURA SIMPSON MEDICAL RECORD: [id number] :70 LOCATION:[facility]att Manav.2124 ADMISSION DATE:12/02/16 SURGEON: SORAIDA HUSAIN DO DATE OF OPERATION: 12/03/2016 PROCEDURE PERFORMED: Right knee joint aspiration. INDICATIONS: Mr. Simpson is a 46-year-old male who has had right knee swelling for 3 days. He said that the pain has gotten better; however, the knee is still quite swollen and tender and he had elevated C-reactive protein. I was asked to see him in consult on the floor. He does have a history of gout, however. DESCRIPTION OF PROCEDURE: Mr. Simpson was in the supine position in his bed. The right knee was marked after he was consented for right knee aspiration and the superior lateral portal was marked. The site was then prepped with Betadine and ethyl chloride spray was used to anesthetize the area. Once this was done, an 18-gauge needle was entered into the knee joint and suprapatellar pouch from the superior and lateral portal and aspiration commenced consisting of a synovial fluid, dena in color, did not appear to be purulent whatsoever and he tolerated this well, 30 mL of the fluid was aspirated off of his knee and then the needle was withdrawn. A 2 x 2 with a Tegaderm was then placed over the site. The patient tolerated this well, was neurovascularly intact after the procedure. The fluid was sent to the lab for analysis, crystals, Gram stain cultures, glucose and cell count. That is a plan as documented. TRANSINT:[id number] Voice Confirmation ID: [id number] DOCUMENT ID: [id number] SORAIDA HUSAIN DO at 0704 CC: [id number] DICTATION DATE: 12/03/16 1621 SENIOR SOURCING MANAGER: 12/03/162003 DIS IN 12/04/16 [facility] [address] [place] [address]
--- NOTE | 2016-12-14 12:47 | EC ---
PATIENT:LAURA HARDIN DATE OF SERVICE: 12/02/16 SEX: M MEDICAL RECORD: [id number] DATE OF : 70 LOCATION:D. D.212 AGE OF PATIENT: 46 ADMISSION DATE: 12/02/16 REFERRING PHYSICIAN: INTERPRETING PHYSICIAN: LAMAR RODRIGUEZ MD ECHOCARDIOGRAM REPORT ECHO CHARGES 4 ECHO COMPLETE CLINICAL DIAGNOSIS: HX OF MITRAL VALVE REPAIR AND HTN ECHOCARDIOGRAPHIC MEASUREMENTS (adult normal given) AC root (d.<3.7cm) 3.6 cm LV Septum d (<1.2 cm> 1.3 cm Valve Excursion 1.8 cm LV Septum (systole) 1.5 cm Left Atria (s.<4.0cm> 5.2 cm LVPW d(<1.2cm) 1.6 cm RV (d.<2.3cm) 5.1 cm LVPW (sytole) 1.7 cm LV diastole(<5.6CM) 5.8 cm MV E-F(>70mm/sec) cm LV systole 4.0 cm LVOT Diameter 1.9 cm MV exc.(>10mm) 1.3 cm Est.ejection fraction (50-75%) % Pericardial Effusion N DOPPLER: LVIT cm/sec A 125 cm/sec E 202 cm/sec LA 119 cm/sec RVSP mmHg LVOT 145 cm/sec AOP1/2T m/s Asc. Ao 86 cm/sec RVOT cm/sec RA 94 cm/sec PA cm/sec AV Gradient Peak 8.38 mmHg AV Mean 4.69 mmHg AV Area 2.1 cm MV Gradient Peak 16.61mmHg MV Mean 5.10 mmHg MV Area cm COMMENTS: Boy'S Adviser: 2 MERE BANEGAS Financial Management: 4 Dr. Rodriguez TAPE# PACS DATE OF SERVICE: 12/03/2016 Transthoracic Echocardiogram FINDINGS: 1. The structure of the heart was difficult to visualize. The patient has a history of valvular repairs. The left ventricular wall motion is complex and appears to be mildly reduced, ejection fraction of 40% to 45%. 2. The mitral valve is thickened throughout its course and the behavior of the anterior mitral valve leaflet and the posterior mitral valve leaflet are ECHOCARDIOGRAM REPORT [id number] LAURA HARDIN unusual, which may be he has undergone some type of mitral valve replacement or repair, but is not easily visualized. There is aliasing velocity across the mitral valve. There is increasing peak velocities across the mitral valve, which would suggest mitral stenosis and although the patient is reportedly in atrial fibrillation, we do have an A wave characteristic. The pressure halftime across the mitral valve was not demonstrated on this study. 3. The aortic valve appears to be structurally normal without any evidence of significant regurgitation or stenosis. 4. The tricuspid valve was not visualized on this study. There is no recorded significant interrogation of the tricuspid valve. CONCLUSION: The patient has had some type of mitral valve repair that makes difficult to have an accurate assessment. There is also complex wall motion along the left ventricle. There is some hint of inferior posterior hypokinesis, although that may be asynchronous and wall motion. If clinically indicated, further evaluation may be helpful. TRANSINT:[id number] Voice Confirmation ID: [id number] DOCUMENT ID: [id number] 12/12/2016 Edited to correct date of service, dm. LAMAR RODRIGUEZ MD at 1247 CC: [id number] DICTATION DATE: 12/04/16 0724 DIRECTOR OF CASINO MARKETING: 12/04/16 1107 DIS IN 12/04/16 [id number] [place] [address]
--- NOTE | 2016-12-25 15:54 | DS ---
PATIENT:LAURA HARDIN :[birth year] MEDICAL RECORD: [id number] DISCHARGE SUMMARY ADMISSION DATE: 12/02/16 DISCHARGE DATE: 12/04/16 ADMIT DATE: 12/02/2016 DISCHARGE DATE: 12/04/2016 DIAGNOSES: 1. Mbhpy-um-dyeupqq systolic heart failure. 2. Atrial flutter. 3. History of mitral valve repair. 4. Diabetes mellitus. 5. Hypokalemia. 6. Acute kidney injury. 7. Effusion of the right knee. CONSULTS: 1. Raghu Juarez MD 2. Vin Cavazos DO, for knee effusion. IMAGES OR STUDIES: Right knee joint aspirated. HOSPITAL COURSE: The full H&P is listed elsewhere in the chart for this 46-year-old male patient who presented with some atypical chest pain, lower extremity edema, and shortness of breath. He was found to have some xhbei-kc-cyfbcum systolic failure. He underwent appropriate diuresis for which he did respond too well. His troponin was slightly bumped, but this was due to ventricular stress. A cardiology was consulted, but no cardiovascular intervention was indicated during this hospitalization other than gentle diuresis. He had a component of prerenal azotemia due to his excess volume that did improve with diuresis. He underwent ortho consult for a knee effusion for which he underwent a knee aspirate by Dr. Cavazos. His clinical condition improved. He was converted from IV diuretics to oral and was thought to be stable to follow up with [facility] in the outpatient setting. See med rec. TRANSINT:[id number] Voice Confirmation ID: [id number] DOCUMENT ID: [id number] Dictated By: SIMEON REED I have interviewed/examined the above patient and agree with these documented findings. UGO RUGGIERO MD at 1110 at 1553 CC: [id number] DICTATION DATE: 12/20/16 1555 AS400 CONSULTANT: 12/21/16 0546 DIS IN 12/04/16 [facility] [address] [place] [address]
== END 2016-12-04 17:00 | disposition home or self-care (01) | DRG 564 ==
LOC: D.ER 19:20 → D.M2 23:09
PROVIDERS: Family Medicine; Orthopaedic Surgery; ADMIT Family Medicine
PROC: 0S9C3ZZ Drainage of Right Knee Joint, Percutaneous Approach (ICD-10-PCS; principal; 2016-12-03)
DX: M25.461 Effusion, right knee (principal); I50.23 Acute on chronic systolic (congestive) heart failure; N17.9 Acute kidney failure, unspecified; I48.92 Unspecified atrial flutter; E11.9 Type 2 diabetes mellitus without complications; E87.6 Hypokalemia; I11.0 Hypertensive heart disease with heart failure

== ENCOUNTER 2016-12-16 13:24 | Inpatient (IN) | payer MEDICAID ==
[~2016-12-16 13:24] MED LIST changes: +BACTRIM DS TABL1 TAB PO; +FLORAJEN3 CAPS460 MG PO
[2016-12-16 13:57] LABS: BASOPHILS 0.9 % (0-2); EOSINOPHILS 2.6 % (0-7); HEMATOCRIT 39.2 % (42.0-54.0); HEMOGLOBIN 13.2 g/dL (13.5-17.5); IMMATURE GRANULOCYTES 0.4 % (0-5); LYMPHOCYTES 31.1 % (15-50); MCH 27.1 pg (26.0-34.0); MCHC 33.7 g/dL (31.0-37.0); MCV 80.5 fL (80.0-100.0); MEAN PLATELET VOLUME 12.2 fL (7.4-10.4); MONOCYTES 6.2 % (2-11); NEUTROPHILS 58.8 % (40-80); RBC 4.87 10x6/uL (4.20-6.10); RDW 15.3 % (11.5-14.5)
[2016-12-16 13:58] LABS: PLATELET COUNT 200 10x3/uL (130-400)
[2016-12-16 14:19] LABS: ALBUMIN 3.6 g/dL (3.4-5.0); ANION GAP 14.9 mmol/L (8-16); BILIRUBIN - TOTAL 0.46 mg/dL (0.2-1.3); CALCIUM 9.2 mg/dL (8.5-10.1); CARBON DIOXIDE 26.4 mmol/L (21.0-32.0); CREATININE - SERUM 1.6 mg/dL (0.6-1.3); MAGNESIUM - SERUM 2.1 mg/dL (1.8-2.4); POTASSIUM - SERUM 4.3 mmol/L (3.5-5.1); PROTEIN - SERUM 8.7 g/dL (6.4-8.2); TROPONIN-I 0.027 ng/mL (0.000-0.060)
[2016-12-16 14:28] LABS: INR 0.98 (0.85-1.17); PROTIME 12.8 SECONDS (11.6-15.0)
[2016-12-16 18:02] LABS: APPEARANCE CLEAR (CLEAR); BILIRUBIN NEGATIVE (NEGATIVE); COLOR STRAW (YELLOW); GLUCOSE 1000 mg/dL (NEGATIVE); KETONE NEGATIVE (NEGATIVE); NITRITE NEGATIVE (NEGATIVE); PROTEIN NEGATIVE (NEGATIVE); UROBILINOGEN NORMAL (NORMAL)
[2016-12-16 18:09] LABS: UDS - AMPHET NEGATIVE QUAL (NEGATIVE); UDS - BARB NEGATIVE QUAL (NEGATIVE); UDS - BENZO NEGATIVE QUAL (NEGATIVE); UDS - COCAINE NEGATIVE QUAL (NEGATIVE); UDS - OPIATE NEGATIVE QUAL (NEGATIVE); UDS - PCP NEGATIVE QUAL (NEGATIVE); UDS - THC POSITIVE QUAL (NEGATIVE)
--- NOTE | 2016-12-16 19:55 | NUR ---
SPOKE WITH AMANDA IN E.R. RECIEVED REPORT.
[2016-12-16 20:00] VITALS: BP 123/72
--- NOTE | 2016-12-16 20:27 | NUR ---
BS 361, COVERED PER S/S.
--- NOTE | 2016-12-16 23:58 | NUR ---
IN BED RESTING, RESPERTONS EVEN, WILL CONT TO MONITOR.
[2016-12-17] VITALS: BP 123/81
--- NOTE | 2016-12-17 01:28 | NUR ---
RESTING WITH EYES CLOSED, RESPERATIONS EVEN, NO S/S DISTRESS NOTED.
[2016-12-17 04:00] VITALS: BP 99/74
--- NOTE | 2016-12-17 04:31 | NUR ---
COMPANY PILOT AT BED SIDE TO OBTAIN VITAL SIGNS.
[2016-12-17 08:00] VITALS: BP 100/64
--- NOTE | 2016-12-17 10:46 | NUR ---
TELEMETRY FLUTTER HR 110. SNOW REMOVING SUPERVISOR AT BS. WILL CONT. PLAN OF CARE.
--- NOTE | 2016-12-17 15:57 | NUR ---
TELEMETR HR 79.
[2016-12-17 16:00] VITALS: BP 115/70
[2016-12-17 20:00] VITALS: BP 115/62
[2016-12-18] VITALS (7 sets, daily range): BP systolic 104–122; BP diastolic 48–73; BMI 36.7
[2016-12-18 05:32] LABS: BASOPHILS 0.6 % (0-2); EOSINOPHILS 3.7 % (0-7); HEMATOCRIT 37.9 % (42.0-54.0); HEMOGLOBIN 12.7 g/dL (13.5-17.5); IMMATURE GRANULOCYTES 0.5 % (0-5); INR 0.98 (0.85-1.17); LYMPHOCYTES 26.4 % (15-50); MCHC 33.5 g/dL (31.0-37.0); MCV 80.6 fL (80.0-100.0); MEAN PLATELET VOLUME 12.5 fL (7.4-10.4); NEUTROPHILS 63.8 % (40-80); PLATELET COUNT 187 10x3/uL (130-400); PROTIME 12.8 SECONDS (11.6-15.0); RDW 15.7 % (11.5-14.5); WBC 9.4 10x3/uL (4.8-10.8)
[2016-12-18 05:39] LABS: CALC OSMOLALITY 276 mosm/kg (275-300); CALCIUM 8.4 mg/dL (8.5-10.1); CARBON DIOXIDE 27.8 mmol/L (21.0-32.0); CHLORIDE - SERUM 100 mmol/L (98-107); CREATININE - SERUM 1.1 mg/dL (0.6-1.3); GLUCOSE 206 mg/dL (74-106); POTASSIUM - SERUM 3.5 mmol/L (3.5-5.1); SODIUM 136 mmol/L (136-145); UREA NITROGEN 9 mg/dL (7-18); eGFR NON AFRICAN AMERICAN 76 mL/min (90-120)
--- NOTE | 2016-12-18 10:27 | NUR ---
SLEEPING AT PRESENT. MONITOR SHOWS NSR@ 67. WILL CONTINUE TO MONITOR.
[2016-12-18 17:01] LABS: HEMOGLOBIN A1C 10.4 % (4.8-6.0)
--- NOTE | 2016-12-18 20:00 | NUR ---
PT RESTING IN BED. ALERT/ORIENTED. VOICING NO NEEDS. SEE SHIFT ASSESSMENT AND CPOC.
--- NOTE | 2016-12-18 23:45 | NUR ---
HS MEDS GIVEN. LANTUS AND SLIDING SCALE ADMINISTERED. PT REQUESTING SNACK. SNACK PROVIDED.
--- NOTE | 2016-12-19 00:15 | NUR ---
PT DOES NOT WANT IV BUMEX DURING THE NIGHT. WILL RESET TIMES FOR 0500 AND 1700.
[2016-12-19 04:32] VITALS: BP 114/68
[2016-12-19 05:09] LABS: BASOPHILS 0.5 % (0-2); EOSINOPHILS 3.8 % (0-7); HEMATOCRIT 36.4 % (42.0-54.0); IMMATURE GRANULOCYTES 0.5 % (0-5); LYMPHOCYTES 30.9 % (15-50); MCH 26.7 pg (26.0-34.0); MCV 81.1 fL (80.0-100.0); MEAN PLATELET VOLUME 12.6 fL (7.4-10.4); NEUTROPHILS 54.3 % (40-80); PLATELET COUNT 182 10x3/uL (130-400); RBC 4.49 10x6/uL (4.20-6.10); RDW 15.9 % (11.5-14.5); WBC 7.6 10x3/uL (4.8-10.8)
[2016-12-19 05:22] LABS: CALC OSMOLALITY 274 mosm/kg (275-300); CALCIUM 8.5 mg/dL (8.5-10.1); CARBON DIOXIDE 27.8 mmol/L (21.0-32.0); CHLORIDE - SERUM 100 mmol/L (98-107); CREATININE - SERUM 1.1 mg/dL (0.6-1.3); GLUCOSE 160 mg/dL (74-106); POTASSIUM - SERUM 3.3 mmol/L (3.5-5.1); SODIUM 137 mmol/L (136-145); UREA NITROGEN 8 mg/dL (7-18); eGFR NON AFRICAN AMERICAN 76 mL/min (90-120)
[2016-12-19 05:25] LABS: INR 1.03 (0.85-1.17); PROTIME 13.3 SECONDS (11.6-15.0)
[2016-12-19 08:06] VITALS: BP 101/61
--- NOTE | 2016-12-19 08:48 | NUR ---
ASSESSMENT COMPLETED. TELEMERTY SHOWS SR AT 70. IV TO THE RIGHT WRIST WITH NS AT 30. DENIES ANY NEEDS. SR UP WITH CALL LIGHT IN REACH WILL MONITOR
--- NOTE | 2016-12-19 12:11 | NUR ---
Nutrition Consult: Consult received for DM edu. Pt reported that he has had DM "for years." He stated that he does like sweet tea and does eat dessert often. Pt stated that he eats a large amount of vegetables and not really many CHO (except dessert). Discussed CHO containing foods and portion sizes. Encouraged pt to eat 3 meals and 3 snacks/day - all including CHO. Cautioned pt from eating dessert everyday; portion control with this discussed as well. Pt understood info presented. Pt encouraged to contact RD with any questions/concerns. Thank you for the consult. RD following.
[2016-12-19 12:17] VITALS: BP 114/80
--- NOTE | 2016-12-19 13:37 | NUR ---
LYING QUIETLY. NO NEEDS VOICED. SR UP WITH CALL LIGHT IN REACH.
[2016-12-19] MEDS ORDERED: LANTUS SOL100 UNIT/1 SC (13:54)
[2016-12-19] MEDS ORDERED: BETAPACE 80 MG80 MG PO (13:59)
--- NOTE | 2016-12-19 16:07 | NUR ---
Patient Name: LAURA HARDIN Admission Status: ER Accout number: [id number] Admission Date: 12-17-2016 : 1970 Admission Diagnosis: Attending: LUCERO EVANS Current LOS: 2 Anticipated DC Date: 12-19-2016 Planned Disposition: Home Primary Insurance: MEDICAID [place] Discharge Planning Comments: * Is the patient Alert and Oriented? Yes 0 * How many steps to enter\exit or inside your home? 9 0 * PCP [facility] 0 * Pharmacy [facility] 0 * Preadmission Environment Home Alone 0 * ADLs Independent 0 * Equipment None 0 * Other Equipment NO MEDICAL EQUIPMENT PROVIDER PREFERNECE 0 * List name and contact numbers for known caregivers / representatives who currently or will assist patient after discharge: SUZANNE HARDIN, SISTER, 0 * Community resources currently utilized None 0 * Please name any agencies selected above. NONE 0 * Additional services required to return to the preadmission environment? No 0 * Can the patient safely return to the preadmission environment? Yes 0 * Has this patient been hospitalized within the prior 30 days at any hospital? Yes 0 CM MET WITH PT IN ROOM TO DISCUSS DISCHARGE PLANNING AND NEEDS. PT REPORTS LIVING AT HOME INDEPENDENTLY AND ALONE. PT HAS NO MEDICAL EQUIPMENT AND NO OUTSIDE SERVICES ASSISTING IN THE HOME. CM DISCUSSED AVAILABILITY OF HOME HEALTH, REHAB SERVICES AND MEDICAL EQUIPMENT. PT DENIES DISCHARGE NEEDS, REPORTS HIS BROTHER WILL PICK HIM UP FOR DISCHARGE HOME. GRAINING PRESS OPERATOR NURSE NOTIFIED. Inspector Handbag Frames: Saul Aguilar
--- NOTE | 2016-12-19 16:15 | NUR ---
PT DISCHAGED. IV DCD WITH TIP INTACT. INSTRUCTIONS GIVEN. TO PRIVATE CAR PER WHEEL CHAIR
--- NOTE | 2016-12-29 16:56 | CN ---
PATIENT NAME:LAURA SIMPSON MEDICAL RECORD: [id number] : 70 LOCATION:[facility] D.2114 ADMIT DATE: 12/17/16 ACCOUNT: [id number] CONSULTING PHYSICIAN: STEPHAN ROSARIO MD REFERRING PHYSICIAN: LUCERO DOE MD DATE OF CONSULTATION: 12/17/2016 DIAGNOSES: 1. Shortness of breath. 2. Dyspnea on exertion. 3. Mitral regurgitation. 4. Status post mitral valve repair in [place]. 5. Pulmonary edema, congestive heart failure. 6. Cardiomyopathy, chronic systolic dysfunction. 7. Atrial fibrillation, chronic. 8. Tachycardia. HISTORY OF PRESENT ILLNESS: Mr. Simpson presents with shortness of breath, dyspnea on exertion, no real chest pain, he is found to have pulmonary edema and he is also found to have atrial fibrillation with rapid ventricular response. Questionable compliance with his medications, he admits to being out of them for at least 1 or 2 days prior to admission. He is on digoxin and carvedilol last admission, on his meds he was still tachycardic with the atrial fibrillation. The atrial fibrillation is chronic at this time, his left atrium is grossly enlarged. He is status post mitral valve repair in [place]. The atrial fibrillation has been chronic since then. Prior to the valve repair, he had cardiac catheterization revealing no significant blockages. Last echocardiogram here was an ejection fraction in the 40% range. PHYSICAL EXAMINATION: GENERAL APPEARANCE: Well-nourished, well-developed, appears stated age. Level of distress, comfortable. PSYCHIATRIC: Mental status, alert, normal affect. Orientation, oriented to time, place and person. EYES: Lids and conjunctiva, noninjected. No discharge, no pallor. ENT: Lips, teeth, gums, normal dentition. Oropharynx, no cyanosis, no pallor. NECK: Carotid arteries, bilateral normal upstroke, no bruits, no thrills. JUGULAR VEINS: No jugular venous pressure or distention. CERVICAL LYMPH NODES: Nontender, nonenlarged. THYROID: Not enlarged. Nontender. No nodules. LUNGS: Respiratory effort, unlabored. CHEST: Normal curvature. No thoracic deformity. No chest wall tenderness. Percussion, resonant. Auscultation, clear. No wheezes, no rales, no rhonchi. CARDIOVASCULAR: Irregular irregular with atrial fibrillation and rapid ventricular response. EXTREMITIES: No cyanosis, no edema. Peripheral pulses, full and equal in all extremities, except as noted. No bruits appreciated. ABDOMEN: Soft, nondistended. Normal aorta. No bruit. Nontender. No masses. Liver, nontender, no hepatomegaly. Spleen, nontender, no splenomegaly. MUSCULOSKELETAL: No joint tenderness. No joint swelling. No erythema. NEUROLOGICAL: Normal gait, normal strength, normal tone. SKIN: Warm and dry. OVERALL IMPRESSION: Shortness of breath, dyspnea on exertion. I think this is not only from the cardiomyopathy, but the atrial fibrillation with rapid CONSULT REPORT [id number] LAURA SIMPSON response. He is on carvedilol and digoxin, still having rapid ventricular response even when he received those medications here in the hospital on his last hospitalization. We will add sotalol 80 mg b.i.d. to his medical regimen for improved rate control, give him IV Bumex at this time for diuresis. His congestive heart failure and pulmonary edema should clear rapidly, especially with rate control and IV Bumex. TRANSINT:[id number] Voice Confirmation ID: [id number] DOCUMENT ID: [id number] STEPHAN ROSARIO MD at 1656 CC: [id number] DICTATION DATE: 12/17/16 1233 LINOLEUM TILE FLOOR LAYER: 12/17/16 1701 DIS IN 12/19/16 [id number] [place] [address]
--- NOTE | 2016-12-29 16:56 | EC ---
PATIENT:LAURA HARDIN DATE OF SERVICE: 12/17/16 SEX: M MEDICAL RECORD: [id number] DATE OF : 70 LOCATION:D. D.211 AGE OF PATIENT: 46 ADMISSION DATE: 12/17/16 REFERRING PHYSICIAN: INTERPRETING PHYSICIAN: STEPHAN GAN MD ECHOCARDIOGRAM REPORT ECHO CHARGES 4 ECHO COMPLETE CLINICAL DIAGNOSIS: CHF HX OF MITRAL /TRICUSPID VALVE REPAIR/HTN ECHOCARDIOGRAPHIC MEASUREMENTS (adult normal given) AC root (d.<3.7cm) 3.6 cm LV Septum d (<1.2 cm> 1.4 cm Valve Excursion 2.0 cm LV Septum (systole) 1.5 cm Left Atria (s.<4.0cm> 4.6 cm LVPW d(<1.2cm) 1.2 cm RV (d.<2.3cm) 3.6 cm LVPW (sytole) 1.4 cm LV diastole(<5.6CM) 6.5 cm MV E-F(>70mm/sec) cm LV systole 5.2 cm LVOT Diameter 1.8 cm MV exc.(>10mm) 1.5 cm Est.ejection fraction (50-75%) % Pericardial Effusion N DOPPLER: LVIT cm/sec A 20.0 cm/sec E 198 cm/sec LA cm/sec RVSP 41 mmHg LVOT 121 cm/sec AOP1/2T m/s Asc. Ao 139 cm/sec RVOT 89 cm/sec RA cm/sec PA 96 cm/sec AV Gradient Peak 7.70 mmHg AV Mean 3.76 mmHg AV Area 2.5 cm MV Gradient Peak 26.65mmHg MV Mean 9.35 mmHg MV Area cm COMMENTS: [facility] Hospitalist: Bruce BANEGAS Hospital Nurse: 1 Dr. Gan TAPE# PACS DATE OF SERVICE: 12/17/2016 Echocardiogram FINDINGS: 1. Left ventricular chamber size is mildly dilated. Left ventricular systolic function is moderately reduced, overall ejection fraction 30% to 35%. 2. The left atrium is moderately enlarged at 4.6 cm. Right atrium and right ventricular chamber sizes are as well ygrf-ro-lduobxouvy dilated. 3. Valvular structures have normal structure and motion. ECHOCARDIOGRAM REPORT [id number] LAURA HARDIN 4. Doppler interrogation reveals ghuz-[id number]-xcnbcbwy mitral regurgitation, [id number] tricuspid regurgitation, no other valvular insufficiency or stenosis. Pulmonary systolic pressure is mildly elevated, estimated at 41 mmHg. 5. No evidence of pericardial effusion or left ventricular thrombus. TRANSINT:[id number] Voice Confirmation ID: [id number] DOCUMENT ID: [id number] 12/25/2016 Edited to correct date of service, dmm. STEPHAN GAN MD at 1656 CC: [id number] DICTATION DATE: 12/18/16914 [employer]S AND CORROSION ENGINEER: 12/18/16 1131 DIS IN 12/19/16 [facility] [address] [place] [address]
== END 2016-12-19 16:17 | disposition home or self-care (01) | DRG 292 ==
LOC: D.ER 13:24 → D.M2 19:08 → OBSVTIME 19:08 → D.M2 12-17 15:16
PROVIDERS: Emergency Medicine; Family Medicine; ADMIT Family Medicine
DX: I11.0 Hypertensive heart disease with heart failure (principal); N17.9 Acute kidney failure, unspecified; I48.92 Unspecified atrial flutter; E87.1 Hypo-osmolality and hyponatremia; I50.23 Acute on chronic systolic (congestive) heart failure; I42.9 Cardiomyopathy, unspecified; E11.9 Type 2 diabetes mellitus without complications; Z79.01 Long term (current) use of anticoagulants; I48.2 Chronic atrial fibrillation; R00.0 Tachycardia, unspecified

== ENCOUNTER 2016-12-19 18:31 | Emergency (ER) | payer MEDICAID ==
[2016-12-18 15:06] VITALS: BMI 36.7
[~2016-12-19 18:31] MED LIST changes: +BETAPACE 80 MG80 MG PO; +LANTUS SOL100 UNIT/1 SC
== END 2016-12-19 21:10 | disposition home or self-care (01) ==
LOC: D.ER 18:31
DX: M25.572 Pain in left ankle and joints of left foot (principal)

== ENCOUNTER 2016-12-20 11:14 | Emergency (ER) | payer MEDICAID ==
[2016-12-18 15:06] VITALS: BMI 36.7
== END 2016-12-20 15:28 | disposition home or self-care (01) ==
LOC: D.ER 11:14
DX: M25.572 Pain in left ankle and joints of left foot (principal); T40.605A Adverse effect of unspecified narcotics, initial encounter; Y92.029 Unspecified place in mobile home as the place of occurrence of the external cause; L29.9 Pruritus, unspecified; I10 Essential (primary) hypertension; E11.9 Type 2 diabetes mellitus without complications

== ENCOUNTER 2016-12-27 10:58 | Emergency (ER) | payer MEDICAID ==
[2016-12-18 15:06] VITALS: BMI 36.7
[2016-12-27 12:08] LABS: BASOPHILS 0.4 % (0-2); EOSINOPHILS 1.8 % (0-7); HEMATOCRIT 46.5 % (42.0-54.0); HEMOGLOBIN 16.2 g/dL (13.5-17.5); LYMPHOCYTES 26.6 % (15-50); MCH 27.4 pg (26.0-34.0); MCHC 34.8 g/dL (31.0-37.0); MCV 78.5 fL (80.0-100.0); MEAN PLATELET VOLUME 12.1 fL (7.4-10.4); MONOCYTES 7.5 % (2-11); NEUTROPHILS 62.7 % (40-80); PLATELET COUNT 216 10x3/uL (130-400); RBC 5.92 10x6/uL (4.20-6.10); RDW 14.8 % (11.5-14.5)
[2016-12-27 12:25] LABS: ALBUMIN 3.8 g/dL (3.4-5.0); ANION GAP 14.8 mmol/L (8-16); BILIRUBIN - TOTAL 0.63 mg/dL (0.2-1.3); CALCIUM 9.9 mg/dL (8.5-10.1); CARBON DIOXIDE 27.9 mmol/L (21.0-32.0); CREATININE - SERUM 1.5 mg/dL (0.6-1.3); POTASSIUM - SERUM 4.7 mmol/L (3.5-5.1); PROTEIN - SERUM 9.5 g/dL (6.4-8.2)
== END 2016-12-27 18:20 | disposition home or self-care (01) ==
LOC: D.ER 10:58
PROVIDERS: Emergency Medicine
DX: K31.84 Gastroparesis (principal); R73.9 Hyperglycemia, unspecified

== ENCOUNTER 2017-05-03 14:36 | Emergency (ER) | payer MEDICAID ==
[2016-12-18 15:06] VITALS: BMI 36.7
[2017-05-03 15:16] LABS: BASOPHILS 0.6 % (0-2); EOSINOPHILS 1.7 % (0-7); HEMATOCRIT 35.3 % (42.0-54.0); HEMOGLOBIN 11.8 g/dL (13.5-17.5); IMMATURE GRANULOCYTES 0.3 % (0-5); MCH 26.1 pg (26.0-34.0); MCHC 33.4 g/dL (31.0-37.0); MCV 78.1 fL (80.0-100.0); MEAN PLATELET VOLUME 10.9 fL (7.4-10.4); MONOCYTES 7.6 % (2-11); NEUTROPHILS 60.8 % (40-80); PLATELET COUNT 169 10x3/uL (130-400); RBC 4.52 10x6/uL (4.20-6.10)
[2017-05-03 15:20] LABS: ALBUMIN 3.2 g/dL (3.4-5.0); ALKALINE PHOSPHATASE 80 U/L (46-116); ALT (SGPT) 37 U/L (10-68); BILIRUBIN - TOTAL 0.35 mg/dL (0.2-1.3); CALC OSMOLALITY 274 mosm/kg (275-300); CALCIUM 8.9 mg/dL (8.5-10.1); CARBON DIOXIDE 25.2 mmol/L (21.0-32.0); CHLORIDE - SERUM 104 mmol/L (98-107); CREATININE - SERUM 0.9 mg/dL (0.6-1.3); GLUCOSE 92 mg/dL (74-106); PROTEIN - SERUM 7.5 g/dL (6.4-8.2); SODIUM 138 mmol/L (136-145); UREA NITROGEN 10 mg/dL (7-18); eGFR NON AFRICAN AMERICAN > 90 mL/min (90-120)
[2017-05-03 15:28] LABS: AMYLASE - SERUM 95 U/L (25-115); LIPASE 606 U/L (73-393); PRO BNP 1029 pg/mL (0-125)
[2017-05-03 16:50] LABS: APPEARANCE CLEAR (CLEAR); BILIRUBIN NEGATIVE (NEGATIVE); COLOR YELLOW (YELLOW); GLUCOSE NEGATIVE (NEGATIVE); KETONE NEGATIVE (NEGATIVE); NITRITE NEGATIVE (NEGATIVE); PROTEIN NEGATIVE (NEGATIVE); UROBILINOGEN NORMAL (NORMAL)
[2017-05-03 16:51] LABS: BACTERIA FEW /hpf (NONE SEEN); RED CELLS - URINE 0-5 /hpf (0-5); WHITE CELLS - URINE 0-5 /hpf (0-5)
== END 2017-05-03 16:45 | disposition home or self-care (01) ==
LOC: D.ER 14:36
PROVIDERS: Emergency Medicine; Physician Assistant Medical
DX: K86.1 Other chronic pancreatitis (principal); I50.9 Heart failure, unspecified; I10 Essential (primary) hypertension; E11.9 Type 2 diabetes mellitus without complications

== ENCOUNTER 2017-12-26 15:20 | Emergency (ER) | payer MEDICAID ==
[~2017-12-26] VITALS: Ht 175.3 cm; Wt 104.3 kg
[2017-12-26 15:28] VITALS: Ht 175.3 cm; Wt 104.3 kg
[2017-12-26] MEDS ORDERED: MUPIROCIN22 GM TOPICAL (19:45)
[2017-12-26] MEDS ORDERED: TYLENOL W/CODEI1 TAB PO (19:45)
[2017-12-26 20:35] VITALS: BP 126/91
== END 2017-12-26 20:35 | disposition home or self-care (01) ==
LOC: D.ER 15:20
DX: S01.01XA Laceration without foreign body of scalp, initial encounter (principal); W22.8XXA Striking against or struck by other objects, initial encounter; Y93.89 Activity, other specified; Y92.89 Other specified places as the place of occurrence of the external cause; E11.9 Type 2 diabetes mellitus without complications; I11.0 Hypertensive heart disease with heart failure; I50.9 Heart failure, unspecified